=== PATIENT | female | born 1930 | race Caucasian/White ===

== ENCOUNTER → 2018-04-15 | Emergency (ER) | payer MEDICARE, OTHER, MEDICAID ==
[2018-04-15] MEDS: DIPHTH/TET/ACEL PERTUSS (ADULT) 0.5 ML VIAL IM* (17:38)
[2018-04-15] MEDS: LIDOCAINE 2% (MDV) 20 ML INJ INJ (17:40)
== END | disposition home or self-care (01) ==
LOC: FTE 16:34
DX: S61.412A Laceration without foreign body of left hand, initial encounter (principal); I10 Essential (primary) hypertension; E03.9 Hypothyroidism, unspecified; W23.0XXA Caught, crushed, jammed, or pinched between moving objects, initial encounter; Y92.9 Unspecified place or not applicable; Z87.891 Personal history of nicotine dependence; Z79.82 Long term (current) use of aspirin; Z23 Encounter for immunization
CPT/HCPCS: 12002; 73130-LT; 90471; 90715; 99283-25

== ENCOUNTER 2018-04-18 19:26 | Emergency (ER) | payer MEDICARE, OTHER | END 2018-04-18 23:30 | disposition home or self-care (01) | LOC: FTE 19:26 | DX: Z48.01 Encounter for change or removal of surgical wound dressing (principal); I10 Essential (primary) hypertension; E03.9 Hypothyroidism, unspecified; Z79.82 Long term (current) use of aspirin | CPT/HCPCS: 99283 ==

== ENCOUNTER 2018-04-24 17:40 | Emergency (ER) | payer MEDICARE, OTHER | END 2018-04-24 19:46 | disposition home or self-care (01) | LOC: FTE 17:40 | DX: Z48.01 Encounter for change or removal of surgical wound dressing (principal); I10 Essential (primary) hypertension; E03.9 Hypothyroidism, unspecified; F17.210 Nicotine dependence, cigarettes, uncomplicated; Z79.82 Long term (current) use of aspirin | CPT/HCPCS: 99281 ==